=== PATIENT | male | born 1945 | race Caucasian/White ===

== ENCOUNTER 2020-02-18 05:57 | Inpatient (IN) | payer OTHER, MEDICARE ==
[~2020-02-18] VITALS: Ht 175.3 cm; Wt 86.1 kg
--- NOTE | 2020-02-18 06:00 | NUR ---
Pt BIBA from home after pt woke up with 6/10 chest pressure. EMS noted pt to be in SVT with rythm converting back and forth from SVT to Afib with HR in 160s. Pt AAOx4 upon arrival to ED, reports hx of afib and cva
[2020-02-18] MEDS ORDERED: ETOMIDATE 20 MG/10 ML ONE (06:04)
[2020-02-18] MEDS ORDERED: PROPOFOL 10 MG/ML, 20ML ONE (06:05)
--- NOTE | 2020-02-18 06:15 | NUR ---
cardioversion success
[2020-02-18] MEDS ORDERED: SODIUM CHLORIDE FLUSH 10ML SYR IVF ONE (06:30)
[2020-02-18] MEDS ORDERED: PROPOFOL 10 MG/ML, 20ML IVPush ONE (06:30)
[2020-02-18 06:35] LABS: BASOPHILS # (AUTO) 0.04 x10^3/uL (0-0.1); BASOPHILS % (AUTO) 1 % (0-1); EOSINOPHILS # (AUTO) 0.09 x10^3/uL (0-0.4); EOSINOPHILS % (AUTO) 2 % (1-7); LYMPHOCYTES # (AUTO) 1.02 x10^3/uL (1-3.4); LYMPHOCYTES % (AUTO) 18 % (22-44); MD NO; MEAN CORPUSCULAR HEMOGLOBIN 31.7 pg (27.5-34.5); MEAN CORPUSCULAR VOLUME 96.2 fL (81-97); MEAN PLATELET VOLUME 8.6 fL (7.4-10.4); MONOCYTES # (AUTO) 0.54 x10^3/uL (0.2-0.8); MONOCYTES % (AUTO) 9 % (2-9); NEUTROPHILS # (AUTO) 4.14 x10^3/uL (1.8-6.8); NEUTROPHILS % (AUTO) 71 % (42-75); PLATELET COUNT 220 x10^3/uL (130-400); RED BLOOD COUNT 4.34 x10^6/uL (4.38-5.82); RED CELL DISTRIBUTION WIDTH 13.9 % (9.4-14.8)
[2020-02-18 06:45] LABS: INTERNATIONAL NORMALIZED RATIO 1.03 (0.93-1.1); PROTHROMBIN TIME 10.9 Seconds (9.6-11.5)
[2020-02-18 06:49] LABS: ALANINE AMINOTRANSFERASE 16 U/L (12-78); ALBUMIN 3.5 g/dL (3.4-5.0); ANION GAP 9 mmol/L (5-15); CHLORIDE 110 mmol/L (98-107); CREATININE 0.57 mg/dL (0.7-1.3)
[2020-02-18 06:54] LABS: ALKALINE PHOSPHATASE 85 U/L (45-117); BILIRUBIN,TOTAL 0.5 mg/dL (0.2-1.0); TOTAL PROTEIN 7.1 g/dL (6.4-8.2); TROPONIN I 0.016 ng/mL (0.000-0.045)
--- NOTE | 2020-02-18 06:55 | NUR ---
report received from musa zamora.
[2020-02-18] MEDS ORDERED: APIX2.5T PO (07:11)
[2020-02-18] MEDS ORDERED: ATOR10TA9 PO (07:12)
[2020-02-18] MEDS ORDERED: METO50TA82 PO (07:12)
[2020-02-18] MEDS ORDERED: LEVE500T53 PO (07:12)
[2020-02-18] MEDS ORDERED: METF500T17 PO (07:13)
[2020-02-18] MEDS ORDERED: ANTIACID (07:13)
--- NOTE | 2020-02-18 07:25 | NUR ---
pt resting in [facility]. pt's aox4. resps even and unlabored. all monitors in place. call light within reach.
[2020-02-18] MEDS ORDERED: METOCLOPRAMIDE 5 MG/ML, 2ML IVPush PRN (07:30)
[2020-02-18] MEDS ORDERED: CEFTRIAXONE PMX 1GM/50ML 50 ML IVPB ONE (07:30)
[2020-02-18] MEDS ORDERED: LABETALOL 5MG/ML, 20ML IVPush PRN (07:30)
[2020-02-18] MEDS ORDERED: AZITHROMYCIN 500 MG in SODIUM CHLORIDE 0.9% 250 ML IV ONE (07:30)
[2020-02-18] MEDS ORDERED: CEFTRIAXONE PMX 1GM/50ML 50 ML ONE (07:51)
--- NOTE | 2020-02-18 08:05 | NUR ---
abx infusing after bc. pt tolerated well.
[2020-02-18] MEDS: APIXABAN 2.5 MG TABLET PO SCH ×2 (09:00→21:02)
--- NOTE | 2020-02-18 09:15 | NUR ---
PT AMB TO BR WITH STEADY GAIT.
[2020-02-18] MEDS ORDERED: LEVETIRACETAM 500 MG TABLET ONE (09:18)
[2020-02-18] MEDS ORDERED: METOPROLOL TARTRATE 50 MG TAB ONE (09:18)
[2020-02-18] MEDS ORDERED: APIXABAN 5 MG TABLET ONE (09:18)
[2020-02-18] MEDS ORDERED: metFORMIN 500 MG TABLET ONE (09:18)
[2020-02-18] MEDS: metFORMIN 500 MG TABLET PO SCH ×2 (09:25→21:02)
[2020-02-18] MEDS: LEVETIRACETAM 500 MG TABLET PO SCH ×2 (09:25→21:03)
[2020-02-18] MEDS: METOPROLOL TARTRATE 50 MG TAB PO SCH (09:25)
--- NOTE | 2020-02-18 09:29 | NUR ---
2ND ABX INFUSING AT THIS TIME. PT MEDICATED PER EMAR. PT TOLERATED WELL. PT'S AOX4. RESPS EVEN AND UNLABORED. ALL MONITORS IN PLACE. CALL LIGHT WITHIN REACH.
--- NOTE | 2020-02-18 10:17 | NUR ---
PT RESTING IN [facility]. PT'S AOX4. RESPS EVEN AND UNLABORED. ALL MONITORS IN PLACE. CALL LIGHT WITHIN REACH.
--- NOTE | 2020-02-18 10:41 | NUR ---
DIET TRAY ORDERED AT THIS TIME.
--- NOTE | 2020-02-18 11:34 | NUR ---
PT RESTING IN [facility]. PT'S AOX4. RESPS EVEN AND UNLABORED. ALL MONITORS IN PLACE. CALL LIGHT WITHIN REACH.
--- NOTE | 2020-02-18 11:40 | NUR ---
REPORT GIVEN TO RODNEY HOROWITZ. ALL QUESTIONS ANSWERED.
[2020-02-18 12:11] VITALS: BP 140/101
[2020-02-18 12:13] LABS: TROPONIN I 0.091 ng/mL (0.000-0.045)
[2020-02-18 13:30] VITALS: BP 111/75
[2020-02-18 14:28] LABS: C-REACTIVE PROTEIN, QUANT 0.27 mg/dL (0.02-0.49)
[2020-02-18] MEDS ORDERED: ASPIRIN 81 MG TABLET CHEW PO ONE (15:00)
[2020-02-18] MEDS ORDERED: SUCCINYLCHOLINE 20 MG/ML, 10ML ONE (16:09)
[2020-02-18] MEDS ORDERED: ROCURONIUM 10 MG/ML,10ML ONE (16:09)
[2020-02-18] MEDS ORDERED: ONDANSETRON 2MG/ML, 2ML ONE (16:09)
[2020-02-18] MEDS ORDERED: PROPOFOL 10 MG/ML, 100ML IV ONE (16:09)
[2020-02-18 16:24] LABS: TROPONIN I 0.145 ng/mL (0.000-0.045)
[2020-02-18 18:23] LABS: TROPONIN I 0.182 ng/mL (0.000-0.045)
[2020-02-18 18:31] VITALS: BP 145/83
[2020-02-18 19:18] LABS: CLOSTRIDIUM DIFFICILE ANTIGEN NEGATIVE; CLOSTRIDIUM DIFFICILE TOXIN NEGATIVE (Negative)
[2020-02-18] MEDS: DOXYCYCLINE 100MG TABLET PO SCH (21:02)
[2020-02-18] MEDS: CEFDINIR 300 MG CAPSULE PO SCH (21:02)
[2020-02-18] MEDS: ATORVASTATIN 10 MG TABLET PO SCH (21:03)
[2020-02-18] MEDS: GUAIFENESIN ER 600 MG TABLET PO SCH (21:03)
[2020-02-19 01:55] VITALS: BP 144/89
[2020-02-19] MEDS ORDERED: ADENOSINE 6 MG/2 ML IVPush ONE ×3 (04:00→04:30)
[2020-02-19] MEDS ORDERED: MORPHINE SULFATE 4 MG/ML, 1ML ONE ×2 (04:18→22:52)
[2020-02-19] MEDS ORDERED: MORPHINE SULFATE 4 MG/ML, 1ML IVPush ONE (04:30)
[2020-02-19] MEDS ORDERED: METOPROLOL 1 MG/ML, 5ML IVPush ONE (04:30)
[2020-02-19 05:27] LABS: CHLORIDE 109 mmol/L (98-107)
[2020-02-19 05:34] LABS: ANION GAP 11 mmol/L (5-15); CALCIUM 8.5 mg/dL (8.5-10.1); CHOL/HDL RATIO 2.7; CHOLESTEROL, TOTAL 173 mg/dL (140-239); CREATININE 0.59 mg/dL (0.7-1.3); HDL CHOL % 36 % (26-37); HDL CHOLESTEROL (DIRECT) 63 mg/dL (40-60); LDL CHOLESTEROL,CALCULATED 77 mg/dL (54-169); LDL/HDL RATIO 1.2 (0.5-3.0); TRIGLYCERIDES 164 mg/dL (50-200); VLDL CHOLESTEROL 33 mg/dL (0-25)
[2020-02-19] MEDS ORDERED: POTASSIUM CHLORIDE 20 MEQ TAB.ER.PRT PO ONE (07:00)
[2020-02-19] MEDS ORDERED: MAGNESIUM SULFATE/D5W 100 ML IV ONE (07:00)
[2020-02-19 08:30] VITALS: BP 159/93
[2020-02-19] MEDS ORDERED: REGADENOSON 0.4 MG/5 ML SYRINGE ONE (08:55)
[2020-02-19 10:23] VITALS: BP 156/84
[2020-02-19] MEDS: LEVETIRACETAM 500 MG TABLET PO SCH (10:24)
[2020-02-19] MEDS: metFORMIN 500 MG TABLET PO SCH (10:24)
[2020-02-19] MEDS: APIXABAN 2.5 MG TABLET PO SCH (10:24)
[2020-02-19] MEDS: DOXYCYCLINE 100MG TABLET PO SCH (10:24)
[2020-02-19] MEDS: CEFDINIR 300 MG CAPSULE PO SCH (10:24)
[2020-02-19] MEDS: GUAIFENESIN ER 600 MG TABLET PO SCH (10:24)
[2020-02-19] MEDS: METOPROLOL TARTRATE 50 MG TAB PO SCH (10:25)
[2020-02-19] MEDS ORDERED: SODIUM CHLORIDE 0.9% 1,000 ML IV SCH (12:11)
[2020-02-19 14:49] VITALS: BP 153/102
[2020-02-19] MEDS ORDERED: FENTANYL PF 250 MCG/5ML ONE (16:08)
[2020-02-19] MEDS ORDERED: MIDAZOLAM 1 MG/ML, 2ML ONE (16:08)
[2020-02-19] MEDS ORDERED: LIDOCAINE 2%, 20ML ONE (16:19)
[2020-02-19] MEDS ORDERED: DEXAMETHASONE 4 MG/ML, 1ML ONE ×2 (16:30→18:06)
[2020-02-19] MEDS ORDERED: EPHEDRINE 50 MG/ML, 1ML ONE (18:06)
[2020-02-19] MEDS ORDERED: EPHEDRINE 50 MG/ML, 1ML IVPush PRN (19:00)
[2020-02-19] MEDS ORDERED: ONDANSETRON 2MG/ML, 2ML IVPush PRN (19:00)
[2020-02-19] MEDS ORDERED: MIDAZOLAM 1 MG/ML, 2ML IV PRN (19:00)
[2020-02-19] MEDS ORDERED: DIPHENHYDRAMINE 50 MG/ML, 1ML IVPush PRN (19:00)
[2020-02-19] MEDS ORDERED: DIAZEPAM 5 MG/ML, 2ML IVPush PRN (19:00)
[2020-02-19] MEDS ORDERED: MEPERIDINE/PF 25MG/0.5ML IVPush PRN (19:00)
[2020-02-19] MEDS ORDERED: ACETAMINOPHEN 325 MG TABLET PO PRN (19:00)
[2020-02-19] MEDS ORDERED: PROMETHAZINE 12.5 MG SUPP PR PRN (19:00)
[2020-02-19] MEDS ORDERED: HYDROmorphone 1 MG/ML, 1ML INJ IVPush PRN (19:00)
[2020-02-19] MEDS ORDERED: ALBUTEROL SULFATE 2.5 MG/3 ML NPPB PRN (19:00)
[2020-02-19] MEDS ORDERED: hydrALAzine 20 MG/ML, 1ML IV PRN (19:00)
[2020-02-19] MEDS ORDERED: OXYcodone 5 MG/5 ML ORAL.SOL UDC PO PRN (19:00)
[2020-02-19] MEDS ORDERED: FENTANYL PF 100 MCG/2ML IV PRN (19:00)
[2020-02-19] MEDS ORDERED: PROMETHAZINE 25 MG/ML, 1ML IVPush PRN (19:00)
[2020-02-19] MEDS ORDERED: LABETALOL 5MG/ML, 20ML IV PRN (19:00)
[2020-02-19] MEDS ORDERED: FENTANYL PF 100 MCG/2ML ONE (19:15)
[2020-02-19] MEDS ORDERED: ACETAMINOPHEN 650 MG/20.3 ML UDC ONE (19:15)
[2020-02-19] MEDS ORDERED: OXYcodone 5 MG/5 ML ORAL.SOL UDC ONE (19:16)
[2020-02-19] MEDS ORDERED: ADENOSINE 6 MG/2 ML ONE (19:40)
[2020-02-19 20:46] VITALS: BP 145/83
[2020-02-19] MEDS ORDERED: MORPHINE SULFATE 4 MG/ML, 1ML IVPush PRN (23:00)
[2020-02-20 01:11] VITALS: BP 131/76
[2020-02-20] MEDS: DOXYCYCLINE 100MG TABLET PO SCH ×3 (01:19→20:36)
[2020-02-20] MEDS: CEFDINIR 300 MG CAPSULE PO SCH ×3 (01:19→20:35)
[2020-02-20] MEDS: ATORVASTATIN 10 MG TABLET PO SCH ×2 (01:19→20:36)
[2020-02-20] MEDS: metFORMIN 500 MG TABLET PO SCH ×3 (01:19→20:36)
[2020-02-20] MEDS: GUAIFENESIN ER 600 MG TABLET PO SCH ×3 (01:20→20:36)
[2020-02-20] MEDS: APIXABAN 2.5 MG TABLET PO SCH ×3 (01:20→20:36)
[2020-02-20] MEDS: LEVETIRACETAM 500 MG TABLET PO SCH ×3 (01:20→20:36)
[2020-02-20] MEDS: ACETAMINOPHEN 325 MG TABLET PO PRN (01:26)
[2020-02-20 06:41] VITALS: BP 118/70
[2020-02-20] MEDS ORDERED: ADENOSINE 6 MG/2 ML ONE (10:40)
[2020-02-20] MEDS ORDERED: PROPOFOL 10 MG/ML, 20ML ONE (10:43)
[2020-02-20 10:57] VITALS: BP 131/73
[2020-02-20] MEDS: METOPROLOL TARTRATE 50 MG TAB PO SCH (10:59)
[2020-02-20 12:56] VITALS: BP 104/62
[2020-02-20 15:44] LABS: BASOPHILS # (AUTO) 0.01 x10^3/uL (0-0.1); BASOPHILS % (AUTO) 0 % (0-1); EOSINOPHILS # (AUTO) 0.18 x10^3/uL (0-0.4); EOSINOPHILS % (AUTO) 1 % (1-7); LYMPHOCYTES # (AUTO) 0.97 x10^3/uL (1-3.4); LYMPHOCYTES % (AUTO) 8 % (22-44); MD SCAN; MEAN CORPUSCULAR HEMOGLOBIN 31.5 pg (27.5-34.5); MEAN CORPUSCULAR HGB CONC 32.5 g/dL (33.2-36.2); MEAN CORPUSCULAR VOLUME 96.7 fL (81-97); MEAN PLATELET VOLUME 8.8 fL (7.4-10.4); MONOCYTES # (AUTO) 1.16 x10^3/uL (0.2-0.8); MONOCYTES % (AUTO) 10 % (2-9); NEUTROPHILS # (AUTO) 9.95 x10^3/uL (1.8-6.8); NEUTROPHILS % (AUTO) 81 % (42-75); PLATELET COUNT 213 x10^3/uL (130-400); RED BLOOD COUNT 3.64 x10^6/uL (4.38-5.82); RED CELL DISTRIBUTION WIDTH 13.9 % (9.4-14.8)
[2020-02-20 18:46] VITALS: BP 125/77
[2020-02-20] MEDS ORDERED: ADENOSINE 6 MG/2 ML IVPush ONE ×2 (22:00→22:30)
[2020-02-20] MEDS ORDERED: SODIUM CHLORIDE 0.9% 1,000 ML IVBOLUS PRN (22:02)
[2020-02-20 22:10] LABS: BASOPHILS # (AUTO) 0.02 x10^3/uL (0-0.1); BASOPHILS % (AUTO) 0 % (0-1); EOSINOPHILS # (AUTO) 0.22 x10^3/uL (0-0.4); EOSINOPHILS % (AUTO) 2 % (1-7); LYMPHOCYTES # (AUTO) 1.39 x10^3/uL (1-3.4); LYMPHOCYTES % (AUTO) 13 % (22-44); MD NO; MEAN CORPUSCULAR HEMOGLOBIN 31.6 pg (27.5-34.5); MEAN CORPUSCULAR HGB CONC 32.5 g/dL (33.2-36.2); MEAN PLATELET VOLUME 8.9 fL (7.4-10.4); MONOCYTES # (AUTO) 0.84 x10^3/uL (0.2-0.8); MONOCYTES % (AUTO) 8 % (2-9); NEUTROPHILS # (AUTO) 8.16 x10^3/uL (1.8-6.8); NEUTROPHILS % (AUTO) 77 % (42-75); PLATELET COUNT 206 x10^3/uL (130-400); RED BLOOD COUNT 3.73 x10^6/uL (4.38-5.82); RED CELL DISTRIBUTION WIDTH 13.9 % (9.4-14.8)
[2020-02-20 22:19] LABS: ALANINE AMINOTRANSFERASE 14 U/L (12-78); ALBUMIN 3.2 g/dL (3.4-5.0); ANION GAP 7 mmol/L (5-15); CALCIUM 8.3 mg/dL (8.5-10.1); CHLORIDE 110 mmol/L (98-107); CREATININE 0.65 mg/dL (0.7-1.3)
[2020-02-20 22:23] LABS: ALKALINE PHOSPHATASE 66 U/L (45-117); BILIRUBIN,TOTAL 0.5 mg/dL (0.2-1.0); TOTAL PROTEIN 6.8 g/dL (6.4-8.2); TROPONIN I 0.054 ng/mL (0.000-0.045)
[2020-02-20 22:49] LABS: INTERNATIONAL NORMALIZED RATIO 1.01 (0.93-1.1); PROTHROMBIN TIME 10.7 Seconds (9.6-11.5)
[2020-02-21] MEDS ORDERED: PROPOFOL 10 MG/ML, 20ML IVPush ONE
[2020-02-21] MEDS ORDERED: MAGNESIUM SULFATE PMX 4GM/100M 100 ML IV ONE
[2020-02-21 01:31] VITALS: BP 132/67
[2020-02-21] MEDS ORDERED: MAGNESIUM SULFATE PMX 2GM/50ML 50 ML IV ONE ×2 (05:30→12:00)
[2020-02-21 08:16] VITALS: BP 129/82
[2020-02-21] MEDS: METOPROLOL TARTRATE 50 MG TAB PO SCH (09:40)
[2020-02-21] MEDS: GUAIFENESIN ER 600 MG TABLET PO SCH ×2 (09:40→20:19)
[2020-02-21] MEDS: LEVETIRACETAM 500 MG TABLET PO SCH ×2 (09:40→20:19)
[2020-02-21] MEDS: metFORMIN 500 MG TABLET PO SCH ×2 (09:40→20:18)
[2020-02-21] MEDS: APIXABAN 2.5 MG TABLET PO SCH ×2 (09:40→20:18)
[2020-02-21] MEDS: CEFDINIR 300 MG CAPSULE PO SCH ×2 (09:40→20:18)
[2020-02-21] MEDS: DOXYCYCLINE 100MG TABLET PO SCH ×2 (09:40→20:19)
[2020-02-21] MEDS ORDERED: SENNA/DOCUSATE TABLET PO PRN (14:30)
[2020-02-21] MEDS: ONDANSETRON 2MG/ML, 2ML IVPush PRN (15:18)
[2020-02-21] MEDS: SOTALOL 80MG TABLET PO SCH (17:18)
[2020-02-21] MEDS: ATORVASTATIN 10 MG TABLET PO SCH (20:19)
[2020-02-21] MEDS ORDERED: MELATONIN 5 MG TABLET PO ONE (20:30)
[2020-02-21 20:39] VITALS: BP 131/75
[2020-02-21 23:48] VITALS: BP 132/57
[2020-02-22] MEDS: SOTALOL 80MG TABLET PO SCH ×2 (06:35→18:02)
[2020-02-22 08:55] VITALS: BP 104/68
[2020-02-22] MEDS: CEFDINIR 300 MG CAPSULE PO SCH (09:04)
[2020-02-22] MEDS: DOXYCYCLINE 100MG TABLET PO SCH (09:05)
[2020-02-22] MEDS: GUAIFENESIN ER 600 MG TABLET PO SCH ×2 (09:05→20:06)
[2020-02-22] MEDS: LEVETIRACETAM 500 MG TABLET PO SCH ×2 (09:05→20:06)
[2020-02-22] MEDS: APIXABAN 2.5 MG TABLET PO SCH ×2 (09:05→20:06)
[2020-02-22] MEDS: metFORMIN 500 MG TABLET PO SCH ×2 (09:05→20:06)
[2020-02-22] MEDS: ONDANSETRON 2MG/ML, 2ML IVPush PRN (12:16)
[2020-02-22] MEDS ORDERED: CALCIUM CARBONATE 500 MG TAB.CHEW PO PRN ×2 (12:30→13:30)
[2020-02-22] MEDS ORDERED: SODIUM CHLORIDE NASAL SPRAY 45ML BOTTLE NAS PRN (12:30)
[2020-02-22] MEDS ORDERED: LORazepam 2 MG/ML, 1ML IVPush PRN (13:30)
[2020-02-22 15:59] VITALS: BP 141/84
[2020-02-22 19:37] VITALS: BP 135/85
[2020-02-22] MEDS: ATORVASTATIN 10 MG TABLET PO SCH (20:06)
[2020-02-22] MEDS: ACETAMINOPHEN 325 MG TABLET PO PRN (20:06)
[2020-02-22] MEDS: FLUTICASONE NASAL SPRAY 16GM NAS SCH (21:00)
[2020-02-23 02:00] VITALS: BP 134/70
[2020-02-23] MEDS: SOTALOL 80MG TABLET PO SCH ×2 (06:14→17:57)
[2020-02-23 07:19] VITALS: BP 136/77
[2020-02-23] MEDS: APIXABAN 2.5 MG TABLET PO SCH ×2 (08:42→20:13)
[2020-02-23] MEDS: GUAIFENESIN ER 600 MG TABLET PO SCH ×2 (08:42→20:13)
[2020-02-23] MEDS: metFORMIN 500 MG TABLET PO SCH ×2 (08:42→20:13)
[2020-02-23] MEDS: LEVETIRACETAM 500 MG TABLET PO SCH ×2 (08:42→20:13)
[2020-02-23] MEDS: FLUTICASONE NASAL SPRAY 16GM NAS SCH ×2 (10:15→20:12)
[2020-02-23 12:59] VITALS: BP 129/74
[2020-02-23 19:42] VITALS: BP 119/82
[2020-02-23] MEDS: ATORVASTATIN 10 MG TABLET PO SCH (20:13)
[2020-02-24 01:23] VITALS: BP 122/74
[2020-02-24 05:45] VITALS: BP 150/84
[2020-02-24] MEDS: SOTALOL 80MG TABLET PO SCH (05:50)
[2020-02-24 07:01] VITALS: BP 129/68
[2020-02-24] MEDS: LEVETIRACETAM 500 MG TABLET PO SCH (08:21)
[2020-02-24] MEDS: APIXABAN 2.5 MG TABLET PO SCH (08:21)
[2020-02-24] MEDS: metFORMIN 500 MG TABLET PO SCH (08:21)
[2020-02-24] MEDS: GUAIFENESIN ER 600 MG TABLET PO SCH (08:21)
[2020-02-24] MEDS: FLUTICASONE NASAL SPRAY 16GM NAS SCH (09:00)
[2020-02-24] MEDS ORDERED: SOTA80TA18 PO (11:17)
== END 2020-02-24 12:30 | disposition home or self-care (01) | DRG 273 ==
LOC: ED 06:42 → INTOOBSV 06:59 → EDIP 06:59 → OBSVTOIN 06:59 → 5SO 12:00 → DCLOUNGE 02-24 12:24
PROVIDERS: ADMIT Internal Medicine Cardiovascular Disease; ATTEND Family Medicine
PROC: 5A2204Z Restoration of Cardiac Rhythm, Single (ICD-10-PCS; principal; 2020-02-18)
PROC: 02583ZZ Destruction of Conduction Mechanism, Percutaneous Approach (ICD-10-PCS; 2020-02-19)
DX: I47.1 Supraventricular tachycardia (principal); I21.A1 Myocardial infarction type 2; J15.9 Unspecified bacterial pneumonia; I42.9 Cardiomyopathy, unspecified; Q21.1 Atrial septal defect; D68.69 Other thrombophilia; I47.2 Ventricular tachycardia; I48.20 Chronic atrial fibrillation, unspecified; I48.92 Unspecified atrial flutter; E11.65 Type 2 diabetes mellitus with hyperglycemia; E78.5 Hyperlipidemia, unspecified; H40.9 Unspecified glaucoma; I10 Essential (primary) hypertension; I27.20 Pulmonary hypertension, unspecified; Z96.649 Presence of unspecified artificial hip joint; M19.90 Unspecified osteoarthritis, unspecified site; I34.0 Nonrheumatic mitral (valve) insufficiency; Z79.01 Long term (current) use of anticoagulants; Z82.49 Family history of ischemic heart disease and other diseases of the circulatory system; Z83.3 Family history of diabetes mellitus; Z86.73 Personal history of transient ischemic attack (TIA), and cerebral infarction without residual deficits; Z87.891 Personal history of nicotine dependence; Z79.4 Long term (current) use of insulin; Z79.84 Long term (current) use of oral hypoglycemic drugs; Z88.2 Allergy status to sulfonamides
CPT/HCPCS: 36415; 71045; 78452; 80048; 80053; 80061; 83036; 83605; 83615; 83735; 84145; 84443; 84484; 85025; 85347; 85379; 85610; 85730; 86140; 87040; 87324; 93005; 93017; 93306; 93462; 93613; 93621; 93653; 93662; 93926; C1732; C1766; C1769; C1893; C1894; G0378; J0153; J0456; J0696; J1100; J2250; J2405; J2704; J2785; J3010; A9502; C1730; C1759; C9898; J0330; J2060; J2270; J3475; J7050

== ENCOUNTER 2020-04-23 08:29 | Emergency (ER) | payer OTHER, MEDICARE ==
[~2020-04-23] VITALS: Ht 175.3 cm; Wt 84.0 kg
[~2020-04-23 08:29] MED LIST: ANTIACID; APIX2.5T PO; APIX5TAB PO; ATOR10TA9 PO; ATOR40TA PO; DRON400T PO; LANS15CA60 PO; LEVE250T28 PO; LEVE500T53 PO; METF500T17 PO; METO-93 PO; METO50TA82 PO; SOTA80TA18 PO
--- NOTE | 2020-04-23 09:07 | NUR ---
leandro. report received from ems. pt c/o sudden onset of nausea/hathaway/anxiety at [facility] today. pt denies cp/sob. hx of a-fib. all monitors in place. call light within reach. nsr rate 70's on engine monitor with multiple pvcs. ekg done at bedside.
[2020-04-23 09:24] LABS: BASOPHILS # (AUTO) 0.03 x10^3/uL (0-0.1); BASOPHILS % (AUTO) 0 % (0-1); EOSINOPHILS # (AUTO) 0.25 x10^3/uL (0-0.4); EOSINOPHILS % (AUTO) 4 % (1-7); LYMPHOCYTES # (AUTO) 0.82 x10^3/uL (1-3.4); LYMPHOCYTES % (AUTO) 12 % (22-44); MD NO; MEAN CORPUSCULAR HEMOGLOBIN 32.4 pg (27.5-34.5); MEAN CORPUSCULAR HGB CONC 32.9 g/dL (33.2-36.2); MEAN PLATELET VOLUME 8.3 fL (7.4-10.4); MONOCYTES # (AUTO) 0.52 x10^3/uL (0.2-0.8); MONOCYTES % (AUTO) 8 % (2-9); NEUTROPHILS % (AUTO) 76 % (42-75); PLATELET COUNT 203 x10^3/uL (130-400); RED BLOOD COUNT 4.45 x10^6/uL (4.38-5.82); RED CELL DISTRIBUTION WIDTH 14.4 % (9.4-14.8)
[2020-04-23 09:34] LABS: ALBUMIN 4.2 g/dL (3.4-5.0); ANION GAP 5 mmol/L (5-15); CALCIUM 10.2 mg/dL (8.5-10.1); CHLORIDE 110 mmol/L (98-107); CREATININE 0.74 mg/dL (0.7-1.3)
[2020-04-23 09:38] LABS: TROPONIN I < 0.015 ng/mL (0.000-0.045)
--- NOTE | 2020-04-23 09:54 | NUR ---
pt resting in [facility]. pt's aox4. resps even and unlabored. all monitors in place. call light within reach.
[2020-04-23 10:51] VITALS: BP 150/86
--- NOTE | 2020-04-23 11:00 | NUR ---
pt resting in [facility]. pt's aox4. resps even and unlabored. all monitors in place. call light within reach.
--- NOTE | 2020-04-23 11:27 | NUR ---
Patient given discharge instructions and they have confirmed that they understand the instructions. Patient ambulatory with steady gait.
== END 2020-04-23 11:28 | disposition home or self-care (01) ==
LOC: ED 08:58
DX: I49.3 Ventricular premature depolarization (principal); I49.1 Atrial premature depolarization; R00.2 Palpitations; I21.9 Acute myocardial infarction, unspecified; I11.9 Hypertensive heart disease without heart failure; I48.91 Unspecified atrial fibrillation; E11.9 Type 2 diabetes mellitus without complications; Z86.73 Personal history of transient ischemic attack (TIA), and cerebral infarction without residual deficits; Z96.649 Presence of unspecified artificial hip joint
CPT/HCPCS: 36415; 71045; 80048; 82040; 84484; 85025; 93005; 99285

== ENCOUNTER 2020-04-23 14:05 | Emergency (ER) | payer OTHER, MEDICARE ==
[~2020-04-23] VITALS: Ht 172.7 cm; Wt 86.3 kg
--- NOTE | 2020-04-23 14:17 | NUR ---
[facility] [facility] CALLED @ [phone]
--- NOTE | 2020-04-23 14:17 | NUR ---
PREMA. REPORT RECEIVED FROM EMS. PT WAS DC FROM HERE IN THIS AM. PT HAS SVT RATE 180'S AND C/O PALPITATION AND CHEST TIGHTNESS. ADENOSINE GIVEN PANELBEATER. PT'S AOX4. RESPS EVEN AND UNLABORED. ALL MONITORS IN PLACE. EKG DONE AT BEDSIDEBY EMT.
[2020-04-23] MEDS ORDERED: PROPOFOL 10 MG/ML, 20ML ONE (14:24)
[2020-04-23] MEDS ORDERED: PROPOFOL 10 MG/ML, 20ML IVPush ONE (14:30)
--- NOTE | 2020-04-23 14:33 | NUR ---
DIETETICS PROFESSOR JENNIFER CALLED BACK @ [phone]
--- NOTE | 2020-04-23 14:42 | NUR ---
CARDIOVERSION DONE AND SUCCEED. PT'S HR 80'S ON NURSES' ASS[employer]IATION EXECUTIVE DIRECTOR WITH A FEW PVCS. PT'S AOX4. RESPS EVEN AND UNLABORED.
[2020-04-23] MEDS ORDERED: METOPROLOL 1 MG/ML, 5ML ONE (14:49)
--- NOTE | 2020-04-23 14:53 | NUR ---
PT MEDICATED PER EMAR. PT TOLERATED WELL. PT'S AOX4. RESPS EVEN AND UNLABORED.
[2020-04-23] MEDS ORDERED: METOPROLOL 1 MG/ML, 5ML IVPush ONE (15:00)
--- NOTE | 2020-04-23 15:00 | NUR ---
PT BACK TO BASELINE. PT'S AOX4. RESPS EVEN AND UNLABORED. ALL MONITORS IN PLACE. CALL LIGHT WITHIN REACH. NSR RATE 60'S WITH MULTIPLE PVCS. WILL CONTINUE TO MONITOR.
[2020-04-23 16:00] VITALS: BP 140/78
--- NOTE | 2020-04-23 16:01 | NUR ---
Patient given discharge instructions and they have confirmed that they understand the instructions. [place] voucher [place] at [place].
== END 2020-04-23 16:02 | disposition home or self-care (01) ==
LOC: ED 15:11
DX: I47.1 Supraventricular tachycardia (principal); I49.3 Ventricular premature depolarization; R94.31 Abnormal electrocardiogram [ECG] [EKG]; E11.9 Type 2 diabetes mellitus without complications; Z96.649 Presence of unspecified artificial hip joint
CPT/HCPCS: 92960; 93005; 96374; 99283

== ENCOUNTER 2020-05-01 09:06 | Observation (INO) | payer OTHER, MEDICARE ==
[~2020-05-01] VITALS: Ht 172.7 cm; Wt 85.7 kg
--- NOTE | 2020-05-01 09:23 | NUR ---
PT BIB EMS C/O LIGHT HEADED EPISODE WHILE SHOPPING AT [employer]. PT DENIES CP OR SOB. PT STATES THE ONLY OTER SYMPTOM HER EXPERIENCED WAS WEAKNESS. PT DENIES WEAKNESS AT THIS TIME.
--- NOTE | 2020-05-01 09:42 | NUR ---
UOB AND STANDING AT SIDE OF GURNEY TO USE URINAL. NO C/O LIGHTHEADEDNESS
[2020-05-01 10:16] LABS: BASOPHILS % (AUTO) 1 % (0-1); EOSINOPHILS % (AUTO) 3 % (1-7); LYMPHOCYTES % (AUTO) 10 % (22-44); MEAN CORPUSCULAR HEMOGLOBIN 32.2 pg (27.5-34.5); MEAN PLATELET VOLUME 8.8 fL (7.4-10.4); MONOCYTES % (AUTO) 8 % (2-9); NEUTROPHILS % (AUTO) 78 % (42-75); PLATELET COUNT 221 x10^3/uL (130-400); RED BLOOD COUNT 3.89 x10^6/uL (4.38-5.82)
[2020-05-01 10:21] LABS: MD NO
[2020-05-01 10:23] LABS: ALBUMIN 3.9 g/dL (3.4-5.0); ANION GAP 6 mmol/L (5-15); CALCIUM 9.4 mg/dL (8.5-10.1); CHLORIDE 109 mmol/L (98-107)
[2020-05-01 10:30] LABS: CREATININE 0.72 mg/dL (0.7-1.3); TROPONIN I 0.062 ng/mL (0.000-0.045)
--- NOTE | 2020-05-01 10:36 | NUR ---
PT RESTING ON BED, WATCHING TV. AWAITING FURTHER ORDERS.
[2020-05-01] MEDS ORDERED: ASPIRIN 81 MG TABLET CHEW PO ONE (11:00)
[2020-05-01] MEDS ORDERED: MAGNESIUM SULFATE PMX 4GM/100M 100 ML IVPB ONE (11:00)
[2020-05-01] MEDS ORDERED: CEFTRIAXONE PMX 1GM/50ML 50 ML IV ONE (11:00)
[2020-05-01] MEDS ORDERED: CEFTRIAXONE PMX 1GM/50ML 50 ML ONE (11:26)
[2020-05-01] MEDS ORDERED: ASPIRIN 81 MG TABLET CHEW ONE (11:36)
[2020-05-01] MEDS ORDERED: MAGNESIUM SULFATE PMX 4GM/100M 100 ML ONE (12:14)
--- NOTE | 2020-05-01 12:29 | NUR ---
PT DENIES CHEST PAIN OR SOB AT THIS TIME. PT MEDICATED PER MAR.
[2020-05-01] MEDS ORDERED: ACETAMINOPHEN 325 MG TABLET PO PRN (12:30)
[2020-05-01 12:43] LABS: ANION GAP 3 mmol/L (5-15); CALCIUM 9.1 mg/dL (8.5-10.1); CHLORIDE 111 mmol/L (98-107); CREATININE 0.63 mg/dL (0.7-1.3)
--- NOTE | 2020-05-01 12:43 | NUR ---
PHONE REPORT GIVEN TO CARLOS MANUEL EV[facility] ROOM 528
--- NOTE | 2020-05-01 12:45 | NUR ---
SPOUSE CONTACTED TO ADVISE THAT PT WAS IN THE HOSPITAL AND MOVING TO ROOM 524
[2020-05-01 12:46] LABS: TROPONIN I 0.066 ng/mL (0.000-0.045)
[2020-05-01 14:02] VITALS: BP 170/97
[2020-05-01 18:45] LABS: TROPONIN I 0.058 ng/mL (0.000-0.045)
[2020-05-01 20:01] VITALS: BP 138/85
[2020-05-01] MEDS: metFORMIN 500 MG TABLET PO SCH (20:10)
[2020-05-01] MEDS: APIXABAN 5 MG TABLET PO SCH (20:11)
[2020-05-01] MEDS: DRONEDARONE 400MG TABLET PO SCH (20:13)
[2020-05-01] MEDS ORDERED: ATORVASTATIN 40 MG TABLET PO SCH (21:00)
[2020-05-01] MEDS ORDERED: MELATONIN 5 MG TABLET PO PRN (21:00)
[2020-05-02 03:12] VITALS: BP 158/83
[2020-05-02 05:55] LABS: BASOPHILS % (AUTO) 1 % (0-1); EOSINOPHILS % (AUTO) 5 % (1-7); LYMPHOCYTES % (AUTO) 16 % (22-44); MEAN CORPUSCULAR HEMOGLOBIN 31.7 pg (27.5-34.5); MEAN CORPUSCULAR HGB CONC 32.6 g/dL (33.2-36.2); MEAN PLATELET VOLUME 9.2 fL (7.4-10.4); MONOCYTES % (AUTO) 9 % (2-9); NEUTROPHILS % (AUTO) 69 % (42-75); PLATELET COUNT 205 x10^3/uL (130-400); RED BLOOD COUNT 3.78 x10^6/uL (4.38-5.82)
[2020-05-02] MEDS ORDERED: PANTOPRAZOLE 40MG TABLET PO SCH (06:00)
[2020-05-02 06:22] LABS: MD NO
[2020-05-02 07:02] VITALS: BP 162/88
[2020-05-02] MEDS: APIXABAN 5 MG TABLET PO SCH (08:11)
[2020-05-02] MEDS: metFORMIN 500 MG TABLET PO SCH (08:11)
[2020-05-02] MEDS: DRONEDARONE 400MG TABLET PO SCH (08:12)
[2020-05-02] MEDS ORDERED: LEVETIRACETAM 500 MG TABLET PO SCH (09:00)
[2020-05-02] MEDS ORDERED: METOPROLOL SUCCINATE 50 MG TAB.ER.24H PO SCH (09:00)
[2020-05-02] MEDS ORDERED: MAGN400T26 PO (10:19)
[2020-05-02 10:38] VITALS: BP 118/72
== END 2020-05-02 11:30 | disposition home or self-care (01) ==
LOC: ED 11:03 → EDIP 11:49 → INTOOBSV 11:49 → 5SO 13:27 → DCLOUNGE 05-02 11:21
PROVIDERS: ADMIT Hospitalist; ATTEND Hospitalist
DX: R55 Syncope and collapse (principal); R79.89 Other specified abnormal findings of blood chemistry; R91.8 Other nonspecific abnormal finding of lung field; J18.9 Pneumonia, unspecified organism; I48.20 Chronic atrial fibrillation, unspecified; E11.9 Type 2 diabetes mellitus without complications; G40.909 Epilepsy, unspecified, not intractable, without status epilepticus; E78.5 Hyperlipidemia, unspecified; I10 Essential (primary) hypertension; M19.90 Unspecified osteoarthritis, unspecified site; E83.42 Hypomagnesemia; Z79.01 Long term (current) use of anticoagulants; Z79.899 Other long term (current) drug therapy; Z86.73 Personal history of transient ischemic attack (TIA), and cerebral infarction without residual deficits; Z96.649 Presence of unspecified artificial hip joint; Z79.84 Long term (current) use of oral hypoglycemic drugs
CPT/HCPCS: 36415; 71045; 80048; 82040; 83735; 84100; 84145; 84484; 85025; 93005; 96365; 96366; 96367; 99291; G0378; J0696; J3475

== ENCOUNTER 2020-06-21 19:42 | Emergency (ER) | payer OTHER, MEDICARE ==
[~2020-06-21] VITALS: Ht 172.7 cm; Wt 83.0 kg
[~2020-06-21 19:42] MED LIST changes: +MAGN400T26 PO
--- NOTE | 2020-06-21 19:59 | NUR ---
PT BIB [facility] FOR [facility] WHILE PUTTING THINGS IN CAR. PT HAS ABRASION TO RIGHT SIDE OF HEAD AND ABRASION TO LEFT HAND AND KNEE. PT ON ELIQUIS. NO LOC. PT PLACED ON PULSE OX. VSS. CALL LIGHT IN REACH
[2020-06-21 21:10] VITALS: BP 125/80
== END 2020-06-21 21:15 | disposition home or self-care (01) ==
LOC: ED 21:10
DX: S00.83XA Contusion of other part of head, initial encounter (principal); Z86.73 Personal history of transient ischemic attack (TIA), and cerebral infarction without residual deficits; I48.91 Unspecified atrial fibrillation; I10 Essential (primary) hypertension; E78.5 Hyperlipidemia, unspecified; Z96.649 Presence of unspecified artificial hip joint; W18.30XA Fall on same level, unspecified, initial encounter; Y93.89 Activity, other specified; Y92.009 Unspecified place in unspecified non-institutional (private) residence as the place of occurrence of the external cause; Y99.8 Other external cause status
CPT/HCPCS: 70450; 99284

== ENCOUNTER 2020-10-02 18:27 | Emergency (ER) | payer MEDICARE, OTHER ==
[~2020-10-02] VITALS: Ht 175.3 cm; Wt 81.0 kg
[2020-10-02 19:12] LABS: BASOPHILS % (AUTO) 1 % (0-1); EOSINOPHILS % (AUTO) 2 % (1-7); LYMPHOCYTES % (AUTO) 21 % (22-44); MD NO; MEAN CORPUSCULAR HEMOGLOBIN 32.3 pg (27.5-34.5); MEAN PLATELET VOLUME 7.6 fL (7.4-10.4); MONOCYTES % (AUTO) 7 % (2-9); NEUTROPHILS % (AUTO) 69 % (42-75); PLATELET COUNT 190 x10^3/uL (130-400); RED BLOOD COUNT 4.11 x10^6/uL (4.38-5.82); RED CELL DISTRIBUTION WIDTH 13.9 % (9.4-14.8)
[2020-10-02 19:16] LABS: ALBUMIN 3.7 g/dL (3.4-5.0); ANION GAP 9 mmol/L (5-15); CALCIUM 8.6 mg/dL (8.5-10.1); CHLORIDE 111 mmol/L (98-107)
[2020-10-02 19:19] LABS: ALANINE AMINOTRANSFERASE 22 U/L (12-78); ALKALINE PHOSPHATASE 84 U/L (45-117); BILIRUBIN,TOTAL 0.5 mg/dL (0.2-1.0); CREATININE 0.74 mg/dL (0.7-1.3); TOTAL PROTEIN 7.3 g/dL (6.4-8.2)
--- NOTE | 2020-10-02 19:36 | NUR ---
pt resting in bed, pt a/o x4 with unlabored resperations. pt on monitor with vss.
[2020-10-02 19:37] VITALS: BP 141/82
== END 2020-10-02 20:31 | disposition home or self-care (01) ==
LOC: ED 20:10
DX: R53.1 Weakness (principal); R53.83 Other fatigue; R06.02 Shortness of breath; R11.10 Vomiting, unspecified; R07.9 Chest pain, unspecified; R94.31 Abnormal electrocardiogram [ECG] [EKG]; I10 Essential (primary) hypertension; E11.9 Type 2 diabetes mellitus without complications; I48.91 Unspecified atrial fibrillation; E78.5 Hyperlipidemia, unspecified; Z86.73 Personal history of transient ischemic attack (TIA), and cerebral infarction without residual deficits
CPT/HCPCS: 36415; 71045; 80053; 85025; 93005; 99283

== ENCOUNTER 2021-01-16 19:32 | Emergency (ER) | payer OTHER ==
[~2021-01-16] VITALS: Ht 172.7 cm; Wt 88.0 kg
[~2021-01-16 19:32] MED LIST changes: -DRON400T PO; +DRON400T6 PO
--- NOTE | 2021-01-16 21:00 | NUR ---
CLINICAL IMPLEMENTATION SPECIALIST: PT. TO ROOM FROM WALL WITH MILAGROS AT THIS TIME.
--- NOTE | 2021-01-16 21:47 | NUR ---
PREMA FROM HOME IN [place]. PT WAS HELPING INTO BED WHEN HE HAD A GLF AND HIT HIS NOSE AND TOP OF HEAD. PT REPORTS NO LOC. FALL HAPPENED 2 HOURS AGO. PT WAS BLEEDING OUT OF NOSE. BLEEDING CONTROLLED SINCE IN [facility]. DENIES HEADACHES. HX OF 2 STROKES PT STATES TAKING ELIQUIS AND ASA. A&OX4, BREATHING EVEN AND UNLABORED. NADN ATTACHED TO CARD/SP02/BP MONITORS. VSS. BED IN LOW POSITION, RAILS ENGAGED. CALL LIGHT ON LAP. PT [facility]ULATED FROM [facility] AND CHANGED WITH NO DIFFICULTY
--- NOTE | 2021-01-16 21:47 | NUR ---
PT OFF UNIT IN IMAGING
--- NOTE | 2021-01-16 21:59 | NUR ---
PT BCK FROM IMAGING. CONNECTED TO ALL MONITORS. VSS. MASON. PT IS WATCHING TV. MEL.
--- NOTE | 2021-01-16 22:18 | NUR ---
PT AMBULATED TO [facility]HRROM WITH STEADY GAIT. CURRENTLY IN BED. ATTACHED TO MONITORS, VSS. NADN BED IN LOW POSITION, RAILS ENBGAGED, CALL LIGHT ON LAP. WCTM
[2021-01-16 22:52] VITALS: BP 105/55
--- NOTE | 2021-01-16 22:53 | NUR ---
Patient given discharge instructions and they have confirmed that they understand the instructions. Patient ambulatory with steady gait. NAD, all questions answered appropriately, denies additional needs at this time. No personal belongings left in room after discharge. PT GIVEN TAXI VOUCHER FOR [facility] DISCHARGE HOME
== END 2021-01-16 22:55 | disposition home or self-care (01) ==
LOC: ED 21:25
DX: S06.0X0A Concussion without loss of consciousness, initial encounter (principal); I10 Essential (primary) hypertension; E11.9 Type 2 diabetes mellitus without complications; E78.5 Hyperlipidemia, unspecified; I48.91 Unspecified atrial fibrillation; Z86.73 Personal history of transient ischemic attack (TIA), and cerebral infarction without residual deficits; W01.0XXA Fall on same level from slipping, tripping and stumbling without subsequent striking against object, initial encounter; Y93.89 Activity, other specified; Y92.009 Unspecified place in unspecified non-institutional (private) residence as the place of occurrence of the external cause; Y99.8 Other external cause status
CPT/HCPCS: 70450; 99284